=== PATIENT | male | born 1950 | race Caucasian/White ===

== ENCOUNTER 2016-07-25 09:56 | Day surgery (SDC) | payer MEDICARE, BC ==
[~2016-07-25 09:56] MED LIST: BUPIVACAINE HCL 0.75% INJ/PF (7.5 MG/1 ML) 10 ML SDV OS PRN; CHONDR SU A NA/HYALUR INTRAOC KIT (SURGICARE) ONE; EPINEPHRINE INJ/PF 1 MG/1 ML AMPULE ONE; KETOROLAC TROMETHAMINE 0.45% 4 DROP/0.4 ML DROPERETTE OS PRN; LIDOCAINE 4% INJ/PF (40 MG/ML) 5 ML AMPUL OS PRN
[2016-07-25] MEDS: CYCLOPENTOLATE 0.2%/PHENYLEPHRINE 1% OPH SOLN 2 ML OS PRN ×3 (10:13→10:40)
[2016-07-25] MEDS: TROPICAMIDE 1% OPH SOLN 3 ML OS PRN ×3 (10:14→10:41)
[2016-07-25] MEDS: BESIFLOXACIN HCL 0.6% OPH SUSP 5 ML BOTTLE OS PRN ×2 (10:15→11:37)
[2016-07-25] MEDS: TETRACAINE HCL 0.5% OPH SOLN 0.6 ML DROPERETTE OS PRN ×3 (10:17→10:51)
[2016-07-25] MEDS ORDERED: MIDAZOLAM 2 MG/2 ML INJ ONE ×2 (10:51→11:21)
[2016-07-25] MEDS ORDERED: FENTANYL CITRATE INJ/PF 100 MCG/2 ML AMPUL ONE (10:51)
--- NOTE | 2016-07-25 11:48 | [facility] OPERATIVE REPORT E ---
[facility] Operative Report NAME: RUBY KRAMER AGE: 65Y DATE OF SURGERY: 07/25/2016 ROOM: [facility] Operative Report PREOPERATIVE DIAGNOSIS: CATARACT, LEFT EYE. POSTOPERATIVE DIAGNOSIS: CATARACT, LEFT EYE. PROCEDURE PERFORMED: PHACOEMULSIFICATION WITH POSTERIOR CHAMBER INTRAOCULAR LENS, LEFT EYE. SURGEON: GLORIA KIRKLAND MD ANESTHESIA: TOPICAL WITH MAC WITH INTRAOCULAR LIDOCAINE. INDICATIONS FOR SURGERY: Difficulty with distance vision for driving. Best corrected visual acuity, 20/40. PROCEDURE: The patient was brought to the Operating Room and placed on the operative table. Following tetracaine drops, topical anesthesia was administered. This consisted of instrument wipe pledgets soaked in a solution of 4% Xylocaine mixed with 0.75% Marcaine in a 1:2 ratio. A 2 x 1 cm pledget was placed in the superior fornix. A 1 x 1 cm pledget was placed in the inferior fornix. The eye was patched shut for 5 minutes. The patch was removed. The eye was sterilely prepped and draped in the usual manner. Lid speculum was placed in the eye. The pledgets were removed. 4-0 black silk sutures were placed around the superior and the inferior rectus muscles to be used as traction. A conjunctival peritomy was made at the 10 o'clock position. Hemostasis was obtained with bipolar cautery. A posterior limbal groove was created using a crescent knife and dissected anteriorly towards the cornea. A sharp point blade was used to create a paracentesis site at the 2 o'clock position. A 2.4 mm keratome was used to enter the anterior chamber through the groove. Viscoelastic was injected into the anterior chamber. An anterior capsulotomy was performed using Utrata forceps in a capsulorrhexis fashion. Hydrodissection and hydrodelineation were performed. Phacoemulsification was performed in [id number] technique. A total of 1 minute 20 seconds phaco time was used. Following this, the I/A unit was used to remove residual cortex. Viscoelastic was injected into the capsular bag. Intraocular lens model [id number], 21.0 diopters, serial number [id number] was placed in the capsular bag. The I/A unit was used to remove residual viscoelastic. The wound was seen to be watertight under high and low pressure, and no sutures were placed. The intraocular lens was well centered. The pressure was adjusted in the eye to normal pressure. The 4-0 black silk sutures and lid speculum were removed. The eye was shielded after Besivance drops were placed. The patient tolerated the procedure well and was sent to the Recovery Room in good condition. DICTATING PHYSICIAN: GLORIA KIRKLAND M.D. DICTATING PHYSICIAN: GLORIA KIRKLAND M.D. [id number] PHY#: [id number] ID: [id number] JOB#: [id number] ACCT: [id number] cc:GLORIA KIRKLAND M.D. > MTDD
--- NOTE | 2016-07-25 11:51 | [facility] DISCHARGE SUMMARY E ---
[facility] Discharge Summary NAME: RUBY KRAMER AGE: 65Y ADMITTED: 07/25/2016 DISCHARGED: FINAL DIAGNOSIS: Cataract, left eye. HOSPITAL COURSE: The patient is a 65-year-old gentleman who underwent uneventful cataract extraction with intraocular lens implant, left eye, on 07/25/2016. DISPOSITION: The patient was discharged to home. DISCHARGE INSTRUCTIONS: He is instructed to resume preoperative medications, take Tylenol as needed for discomfort, to keep his eye shielded, to use Besivance, Durezol, and Ilevro at 3 p.m. and 8 p.m., and to follow up in my office in 1 day. DICTATING PHYSICIAN: GLORIA KIRKLAND M.D. [id number] Y#: [id number] ID: [id number] JOB#: [id number] ACCT: [id number] cc:GLORIA KIRKLAND M.D. >
[2016-07-25] MEDS ORDERED: LIDOCAINE 1% INJ-PF (10 MG/ML) 30 ML SDV ONE (12:42)
== END 2016-07-25 12:33 | disposition home or self-care (01) ==
LOC: SC 09:56
PROVIDERS: ATTEND Ophthalmology
PROC: 08RK3JZ Replacement of Left Lens with Synthetic Substitute, Percutaneous Approach (ICD-10-PCS; principal; 2016-07-25 11:30)
DX: H25.13 Age-related nuclear cataract, bilateral (principal); H35.372 Puckering of macula, left eye; H04.123 Dry eye syndrome of bilateral lacrimal glands; I10 Essential (primary) hypertension; E78.00 Pure hypercholesterolemia, unspecified; K21.9 Gastro-esophageal reflux disease without esophagitis; F17.210 Nicotine dependence, cigarettes, uncomplicated; Z79.899 Other long term (current) drug therapy
CPT/HCPCS: 66984; V2632; J2250; J3490 ×4; A9270; J0171; J3010; 142

== ENCOUNTER 2016-07-27 07:00 | Emergency (ER) | payer MEDICARE, BC ==
--- NOTE | 2016-07-27 07:31 | ER Document Report ---
Doctor's Note Notes: 07/27/16 07:31 EKG interpreted by myself at his sinus rhythm at [address] segment elevation or depression
--- NOTE | 2016-07-27 07:50 | RADIOLOGY REPORT (SQ) ---
EXAM DESCRIPTION: SHOULDER RIGHT 2 OR MORE VIEWS COMPLETED DATE/TIME: 07/27/2016 7:40 am REASON FOR STUDY: pain COMPARISON: None. NUMBER OF VIEWS: Three views. TECHNIQUE: Internal rotation, external rotation, and Y view images acquired of the right shoulder. LIMITATIONS: None. FINDINGS: MINERALIZATION: Normal. BONES: No acute fracture or dislocation. No worrisome bone lesions. JOINTS: No dislocation. 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 VISUALIZED LUNGS AND RIBS: No pneumothorax. No rib fracture. SOFT TISSUES: No radiopaque foreign body. OTHER: No other significant finding. IMPRESSION: NO RADIOGRAPHIC EVIDENCE OF ACUTE INJURY. TECHNICAL DOCUMENTATION: JOB ID: [id number] [employer]- All Rights Reserved
[2016-07-27] MEDS ORDERED: HYDROMORPHONE HCL INJ/PF 2 MG/ML AMPULE IM ONE ×2 (08:01→11:32)
[2016-07-27] MEDS ORDERED: OXYCODONE-ACETAMINOPHEN 5-325 MG TABLET PO ONE (08:02)
[2016-07-27] MEDS ORDERED: ONDANSETRON 4 MG TAB.RAPDIS PO ONE (08:08)
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
[2016-07-27 10:32] LABS: ABSOLUTE LYMPHOCYTES (AUTO) 0.9 10^3/uL (0.5-4.7); ABSOLUTE MONOCYTES (AUTO) 0.9 10^3/uL (0.1-1.4); ABSOLUTE NEUT (AUTO) 15.4 10^3/uL (1.7-8.2); BASOPHILS % (AUTO) 0.3 % (0-2); EOSINOPHILS % (AUTO) 0.1 % (0-6); HEMATOCRIT 44.2 % (37.9-51.0); HEMOGLOBIN 14.8 g/dL (13.5-17.0); HGB HCT DIFFERENCE 0.2; LYMPHOCYTES % (AUTO) 5.3 % (13-45); MEAN CORPUSCULAR HEMOGLOBIN 29.2 pg (27.0-33.4); MEAN CORPUSCULAR HGB CONC 33.4 g/dL (32.0-36.0); MEAN CORPUSCULAR VOLUME 87 fl (80-97); RED BLOOD COUNT 5.06 10^6/uL (4.35-5.55); RED CELL DISTRIBUTION WIDTH 14.1 % (11.5-14.0); SEGMENTED NEUTROPHILS % (AUTO) 89.3 % (42-78); WHITE BLOOD COUNT 17.2 10^3/uL (4.0-10.5)
[2016-07-27 11:11] LABS: ERYTHROCYTE SEDIMENTATION RATE 32 mm/hr (0-20)
[2016-07-27 13:10] VITALS: BP 155/86
--- NOTE | 2016-07-28 11:06 | EKG REPORT ---
SEVERITY:- OTHERWISE NORMAL ECG - SINUS RHYTHM BORDERLINE RIGHT AXIS DEVIATION : Confirmed by: Kimberly Belcher MD 28-Jul-2016 11:04:59
== END 2016-07-27 13:35 | disposition home or self-care (01) ==
LOC: ER 07:00
DX: M25.511 Pain in right shoulder (principal); M25.512 Pain in left shoulder
CPT/HCPCS: 93005; 99284; 96372; 36415; 85025; 85652; 86140; 84484; 73030; 93010; A9270 ×2; J1170; S0119

== ENCOUNTER 2016-07-30 11:03 | Emergency (ER) | payer MEDICARE, BC ==
--- NOTE | 2016-07-30 11:13 | ER Document Report ---
ED Medical Screen (RME) - General Chief Complaint: Pain All Over Stated Complaint: PAIN ALL OVER Time Seen by Provider: 07/30/16 11:12 Mode of Arrival: Ambulatory Information source: Patient Notes: 65-year-old male complaining of generalized myalgias since July 26. He had cataract surgery July 25 and was seen in the emergency department by Dr. Castellanos on July 27. His white count, CRP, and sed rate were elevated. He was started on doxycycline. Known embedded tick bite but does have ticks crawling on him due to living in the [facility] pretty consistently. No travel outside the [place]. Review of systems is negative for any other symptoms. TRAVEL OUTSIDE OF THE [place] IN LAST 30 DAYS: No - Related Data Allergies/Adverse Reactions: No Known Allergies Allergy (Verified 07/30/16 11:06) Past Medical History - Past Medical History Cardiac Medical History: Reports: Hx Hypertension - MEDICATED, HX OF WHITE COAT SYMDROME WELL Denies: Hx Heart Attack Pulmonary Medical History: Denies: Hx Asthma Neurological Medical History: Denies: Hx Cerebrovascular Accident, Hx Seizures Renal/ Medical History: Denies: Hx Peritoneal Dialysis GI Medical History: Denies: Hx Hepatitis, Hx Hiatal Hernia, Hx Ulcer Infectious Medical History: Denies: Hx Hepatitis Past Surgical History: Denies: Hx Open Heart Surgery, Hx Pacemaker Physical Exam - Vital signs Vitals: Temp Pulse Resp BP Pulse Ox 98.5 F 103 H 15 127/75 H 95 07/30/16 11:06 07/30/16 11:06 07/30/16 11:06 07/30/16 11:06 07/30/16 11:06 Course - Vital Signs Vital signs: Temp Pulse Resp BP Pulse Ox 98.5 F 103 H 15 127/75 H 95 07/30/16 11:06 07/30/16 11:06 07/30/16 11:06 07/30/16 11:06 07/30/16 11:06
[2016-07-30 11:45] LABS: APPEARANCE,URINE CLEAR; BILIRUBIN,URINE NEGATIVE (NEGATIVE); GLUCOSE, URINE NEGATIVE (NEGATIVE); KETONES,URINE NEGATIVE (NEGATIVE); LEUKOCYTE ESTERASE,URINE NEGATIVE (NEGATIVE); NITRITE,URINE NEGATIVE (NEGATIVE); PROTEIN,URINE NEGATIVE (NEGATIVE); URINE SPECIFIC GRAVITY 1.019
[2016-07-30 11:58] LABS: ABSOLUTE BASOPHILS # (AUTO) 0.1 10^3/uL (0.0-0.2); ABSOLUTE EOSINOPHILS # (AUTO) 0.1 10^3/uL (0.0-0.6); ABSOLUTE LYMPHOCYTES (AUTO) 1.6 10^3/uL (0.5-4.7); ABSOLUTE NEUT (AUTO) 10.5 10^3/uL (1.7-8.2); BASOPHILS % (AUTO) 0.5 % (0-2); HEMATOCRIT 46.1 % (37.9-51.0); HEMOGLOBIN 15.1 g/dL (13.5-17.0); HGB HCT DIFFERENCE -0.8; LYMPHOCYTES % (AUTO) 12.3 % (13-45); MEAN CORPUSCULAR HEMOGLOBIN 29.3 pg (27.0-33.4); MEAN CORPUSCULAR HGB CONC 32.6 g/dL (32.0-36.0); MEAN CORPUSCULAR VOLUME 90 fl (80-97); MONOCYTES % (AUTO) 7.4 % (3-13); RED BLOOD COUNT 5.14 10^6/uL (4.35-5.55); RED CELL DISTRIBUTION WIDTH 14.2 % (11.5-14.0); SEGMENTED NEUTROPHILS % (AUTO) 78.8 % (42-78); WHITE BLOOD COUNT 13.3 10^3/uL (4.0-10.5)
--- NOTE | 2016-07-30 12:20 | RADIOLOGY REPORT (SQ) ---
EXAM DESCRIPTION: CHEST PA/LAT COMPLETED DATE/TIME: 07/30/2016 12:07 pm REASON FOR STUDY: myalgias, post catarac surgery COMPARISON: None. EXAM PARAMETERS: NUMBER OF VIEWS: two views TECHNIQUE: Digital Frontal and Lateral radiographic views of the chest acquired. RADIATION DOSE: NA LIMITATIONS: none FINDINGS: LUNGS AND PLEURA: No opacities, masses or pneumothorax. No pleural effusion. MEDIASTINUM AND HILAR STRUCTURES: 10 cm masslike opacity right cardiophrenic angle. Otherwise normal . HEART AND VASCULAR STRUCTURES: Heart normal size. No evidence for failure. BONES: No acute findings. HARDWARE: None in the chest. OTHER: No other significant finding. IMPRESSION: 10 CM MASSLIKE OPACITY RIGHT CARDIOPHRENIC ANGLE. MAIN DIFFERENTIAL INCLUDES HERNIA, IN OMINENT EPICARDIAL FAT PAD, AND CARDIOGENIC CYST. RECOMMEND CT FOR FURTHER CHARACTERIZATION NO IN IOR STUDY AVAILABLE TO DOCUMENT STABILITY. TECHNICAL DOCUMENTATION: JOB ID: [id number] [employer]- All Rights Reserved
[2016-07-30 12:22] LABS: ALANINE AMINOTRANSFERASE 18 U/L (21-72); ALKALINE PHOSPHATASE 88 U/L (38-126); ANION GAP 13 (5-19); ASPARTATE AMINO TRANSFERASE 16 U/L (17-59); BILIRUBIN,DIRECT 0.4 mg/dL (0.0-0.4); BILIRUBIN,TOTAL 0.7 mg/dL (0.2-1.3); BLOOD UREA NITROGEN 20 mg/dL (7-20); C-REACTIVE PROTEIN 71.6 mg/L (<10.0); CALCIUM 9.3 mg/dL (8.4-10.2); CARBON DIOXIDE 25 mmol/L (22-30); CHLORIDE 101 mmol/L (98-107); CREATININE RESULT 0.88 mg/dL (0.52-1.25); GLUCOSE 116 mg/dL (75-110); SODIUM 138.5 mmol/L (137-145); TOTAL PROTEIN 7.3 g/dL (6.3-8.2)
[2016-07-30 12:24] LABS: POTASSIUM 4.2 mmol/L (3.6-5.0)
[2016-07-30 12:35] LABS: ERYTHROCYTE SEDIMENTATION RATE 55 mm/hr (0-20)
[2016-07-30] MEDS ORDERED: ASPIRIN 81 MG TABLET, CHEWABLE PO ONE (12:47)
[2016-07-30] MEDS ORDERED: KETOROLAC TROMETHAMINE INJ/PF 30 MG/1 ML SDV IV ONE (13:21)
[2016-07-30] MEDS ORDERED: NORMAL SALINE 1000 ML 1,000 ML IV ONE (13:21)
--- NOTE | 2016-07-30 14:48 | RADIOLOGY REPORT (SQ) ---
EXAM DESCRIPTION: CT CHEST WITH COMPLETED DATE/TIME: 07/30/2016 2:34 pm REASON FOR STUDY: eval mass COMPARISON: Chest radiograph performed earlier on the same day. TECHNIQUE: CT scan of the chest performed using helical scanning technique with dynamic intravenous contrast injection. Images reviewed with lung, soft tissue and bone windows. Reconstructed coronal and sagittal MPR images reviewed. All images stored on PACS. All CT scanners at this facility use dose modulation, iterative reconstruction, and/or weight based d osing when appropriate to reduce radiation dose to as low as reasonably achievable (ALARA). [facility]: Dose Right [facility]: CareDose [facility]: Dose Right [facility]: Teradose 4D [facility]: CamioCam CONTRAST TYPE AND DOSE: 80 Isovue 370- low osmolar. RENAL FUNCTION: GFR > 60. RADIATION DOSE: 19.75 mGy. LIMITATIONS: None. FINDINGS: LUNGS AND PLEURA: 7 mm spiculated pulmonary nodule left upper lobe seen on series 4, image 20 and series 601, image 54. 7 mm pulmonary nodule right lower lobe seen on series 4, image 53 and series 601, image 56. Lungs and pleural spaces otherwise clear. HILAR AND MEDIASTINAL STRUCTURES: 10.8 x 8.8 x 7.7 cm fluid attenuating mass right cardiophrenic angl e compatible with a benign cardiogenic cyst. Mediastinum otherwise normal. HEART AND VASCULAR STRUCTURES: No aneurysm or dissection. No central pulmonary emboli. No pericardi al effusion. HARDWARE: None in the chest. UPPER ABDOMEN: Rim calcified cyst left hepatic lobe likely sequela to prior infectious or inflammator y process. Small hiatal hernia. No acute findings. Limited exam. THYROID AND OTHER SOFT TISSUES: No masses. No adenopathy. BONES: No significant finding. OTHER: No other significant finding. IMPRESSION: 10.8 CM FLUID ATTENUATING MASS RIGHT CARDIOPHRENIC ANGLE CORRESPONDING TO FINDING ON TOM ST RADIOGRAPH AND CONSISTENT WITH A BENIGN CARDIOGENIC CYST. 7 MM PULMONARY NODULE RIGHT LOWER LOBE AND 7 MM SPICULATED PULMONARY NODULE LEFT UPPER LOBE. RECOMME ND FOLLOW-UP CT IN 3 MONTHS TO ENSURE STABILITY/ RESOLUTION. NO ADDITIONAL ACUTE OR SIGNIFICANT FINDINGS. TECHNICAL DOCUMENTATION: JOB ID: [id number] Quality ID # [id number]: Final reports with documentation of one or more dose reduction techniques (e.g., Au tomated exposure control, adjustment of the mA and/or kV according to patient size, use of iterative reconstruction technique) 2010 [employer]- All Rights Reserved
[2016-07-30 15:28] LABS: CREATINE KINASE MB 0.79 ng/mL (<4.55); TROPONIN I < 0.012 ng/mL
--- NOTE | 2016-07-30 15:53 | ER Document Report ---
ED General - General Chief Complaint: Pain All Over Stated Complaint: PAIN ALL OVER Time Seen by Provider: 07/30/16 11:12 Mode of Arrival: Ambulatory TRAVEL OUTSIDE OF THE [place] IN LAST 30 DAYS: No - HPI Patient complains to provider of: Myalgias Notes: Patient is coming in for evaluation of diffuse myalgias. Patient was recently seen for similar symptoms and currently being treated for Lyme disease. Patient was encouraged to follow-up with his primary care physician also due to his right shoulder issues encouraged follow-up with orthopedic physician. Patient did follow-up with orthopedics and did receive a shot in his shoulder patient is unclear of what was in the shop possibly hydrocortisone. Patient states continues to have diffuse myalgias sharp shooting pains throughout the body. Patient states that during his cardiac surgery he did receive extra anesthesia according to the journalism teacher. Patient states he was told that he received 4 times the normal amount due to the fact that he continued to wake up. Patient states at that time if the myalgias have continued. Patient does state he is found multiple ticks on his body but nothing embedded. Denies any recent travel denies any other symptoms. Upon my evaluation patient is resting comfortably - Related Data Allergies/Adverse Reactions: No Known Allergies Allergy (Verified 07/30/16 11:06) Past Medical History - General Information source: Patient - Social History Smoking Status: Current Every Day Smoker Family History: None Patient has suicidal ideation: No Patient has homicidal ideation: No - Past Medical History Cardiac Medical History: Reports: Hx Hypertension - MEDICATED, HX OF WHITE COAT SYMDROME WELL Denies: Hx Heart Attack Pulmonary Medical History: Denies: Hx Asthma Neurological Medical History: Denies: Hx Cerebrovascular Accident, Hx Seizures Renal/ Medical History: Denies: Hx Peritoneal Dialysis GI Medical History: Denies: Hx Hepatitis, Hx Hiatal Hernia, Hx Ulcer Infectious Medical History: Denies: Hx Hepatitis Past Surgical History: Denies: Hx Open Heart Surgery, Hx Pacemaker Review of Systems - Review of Systems Constitutional: No symptoms reported EENT: No symptoms reported Cardiovascular: No symptoms reported Respiratory: No symptoms reported Gastrointestinal: No symptoms reported Genitourinary: No symptoms reported Male Genitourinary: No symptoms reported Musculoskeletal: Muscle pain Skin: No symptoms reported Hematologic/Lymphatic: No symptoms reported Neurological/Psychological: No symptoms reported -: Yes All other systems reviewed and negative Physical Exam - Vital signs Vitals: Temp Pulse Resp BP Pulse Ox 98.5 F 103 H 15 127/75 H 95 07/30/16 11:06 07/30/16 11:06 07/30/16 11:06 07/30/16 11:06 07/30/16 11:06 Interpretation: Normal - General General appearance: Appears well, Alert - HEENT Head: Normocephalic, Atraumatic Eyes: Normal Pupils: PERRL - Respiratory Respiratory status: No respiratory distress Chest status: Nontender Breath sounds: Normal Chest palpation: Normal - Cardiovascular Rhythm: Regular Heart sounds: Normal auscultation Murmur: No - Abdominal Inspection: Normal Distension: No distension Bowel sounds: Normal Tenderness: Nontender Organomegaly: No organomegaly - Back Back: Normal, Nontender - Extremities General upper extremity: Normal inspection, Nontender, Normal color, Normal ROM , Normal temperature General lower extremity: Normal inspection, Nontender, Normal color, Normal ROM , Normal temperature, Normal weight bearing. No: Oscar's sign - Neurological Neuro grossly intact: Yes Cognition: Normal Orientation: AAOx4 Cuervo Coma Scale Eye Opening: Spontaneous Abdon Coma Scale Verbal: Oriented Cuervo Coma Scale Motor: Obeys Commands Abdon Coma Scale Total: 15 Speech: Normal Motor strength normal: LUE, RUE, LLE, RLE Sensory: Normal - Psychological Associated symptoms: Normal affect, Normal mood - Skin Skin Temperature: Warm Skin Moisture: Dry Skin Color: Normal Course - Re-evaluation Re-evalutation: 07/30/16 15:54 Patient's x-ray showed pericardial cyst this was further evaluated with a CT scan also showing bilateral pulmonary nodules. I did discuss the CT scan results with the patient. Patient did have a Lyme titer ordered. Still pending. Patient's lab work does show increased ESR and C-reactive protein for which I do not clearly have an etiology for. Patient does have possible Lyme disease affecting this could be the reason patient also does have diffuse arthritis according to his history and unclear what these laboratory values that were ordered prior to my evaluation corresponds to at this time. Cannot say patient's evaluation does not show any critical pathology. No signs of any need for admission at this time. Patient agrees with this assessment patient will be given pain control patient understands the need follow-up with his primary care as outpatient - Vital Signs Vital signs: Temp Pulse Resp BP Pulse Ox 98.5 F 103 H 15 127/75 H 95 07/30/16 11:06 07/30/16 11:06 07/30/16 11:06 07/30/16 11:06 07/30/16 11:06 - Laboratory Result Diagrams: 07/30/16 11:45 07/30/16 11:45 Laboratory results interpreted by me: 07/30/16 07/30/16 07/30/16 11:27 11:45 11:45 WBC 13.3 H RDW 14.2 H Seg Neutrophils % 78.8 H Lymphocytes % 12.3 L Absolute Neutrophils 10.5 H ESR 55 H Glucose 116 H AST 16 L ALT 18 L Creatine Kinase C-Reactive Protein 71.6 H Urine Urobilinogen 2.0 H 07/30/16 11:45 WBC RDW Seg Neutrophils % Lymphocytes % Absolute Neutrophils ESR Glucose AST ALT Creatine Kinase 45 L C-Reactive Protein Urine Urobilinogen Discharge - Discharge Clinical Impression: Diffuse myalgias Condition: Good Disposition: HOME, SELF-CARE Instructions: Myalagia (Muscle Pain) ([facility]) Additional Instructions: Your evaluation today reveals no critical etiology for your symptoms. I would highly recommend following up with your doctor next week around or Sunday for reevaluation and discussion of your Lyme titers. Also you need to let your primary care physician know that your CT scan does show to nodules on her lungs that will need to be followed. Her lab work did not show any signs of infection did not show any signs of cardiac damage. I believe that your pain may be due to possible Lyme disease or possibly from your recent exposure to anesthesia. I do not see any need for admission to the hospital at this time. I will highly recommend he continue to take Tylenol Motrin for your pain alternating every 4 hours and take the oxycodone prescribed for very severe pain. Return to the ER for any concerns Prescriptions: Ibuprofen [Motrin 600 Mg Tablet] 600 mg PO TID #30 tablet Oxycodone HCl 5 - 10 mg PO Q6 #40 tablet Referrals: GUZMAN GREY MD [Primary Care Provider] - Follow up as needed
[2016-07-30 16:45] VITALS: BP 142/81
--- NOTE | 2016-07-31 09:56 | EKG REPORT ---
SEVERITY:- NORMAL ECG - SINUS RHYTHM : Confirmed by: Sheyla Garcia 31-Jul-2016 09:54:40
[2016-08-02 07:01] LABS: LYME DISEASE IGG AND IGM AB <0.91 ISR (0.00-0.90)
== END 2016-07-30 16:20 | disposition home or self-care (01) ==
LOC: ER 11:03
DX: M79.1 Myalgia (principal); R52 Pain, unspecified; F17.200 Nicotine dependence, unspecified, uncomplicated
CPT/HCPCS: 93005; 99284; 96374; 36415; 87086; 82553; 82550; 84550; 85025; 85652; 86140; 80053; 81001; 84484; 86618 ×2; 86617 ×2; 71020; 71260; 93010; A9270; J1885; J7030

== ENCOUNTER 2016-07-31 10:09 | Emergency (ER) | payer MEDICARE, BC ==
[2016-07-31] MEDS ORDERED: NORMAL SALINE 1000 ML 1,000 ML IV PRN (10:55)
--- NOTE | 2016-07-31 10:56 | ER Document Report ---
ED Medical Screen (RME) - General Chief Complaint: Pain All Over Stated Complaint: GENERAL BODY PAIN Time Seen by Provider: 07/31/16 10:34 Mode of Arrival: Wheelchair Information source: Patient TRAVEL OUTSIDE OF THE [place] IN LAST 30 DAYS: No - HPI Patient complains to provider of: Generalized weakness, diffuse body aches Onset: Last week Onset/Duration: Worse Quality of pain: Achy Severity: Moderate Pain Level: 4 Associated Symptoms: Weakness Exacerbated by: Movement Similar symptoms previously: Yes Recently seen / treated by doctor: Yes Notes: 07/31/16 10:56 Patient is a 65-year-old male who presents to the emergency room for the third time in 1 week complaining of diffuse body aches with bilateral upper extremity pain, with generalized weakness, stating that he can barely even supported on weight this morning, he had cataract surgery on 07/25/2016 and symptoms have been worsening since then - Related Data Allergies/Adverse Reactions: No Known Allergies Allergy (Verified 07/31/16 10:15) Past Medical History - Past Medical History Cardiac Medical History: Reports: Hx Hypercholesterolemia, Hx Hypertension - MEDICATED, HX OF WHITE COAT SYMDROME WELL Denies: Hx Heart Attack Pulmonary Medical History: Denies: Hx Asthma Neurological Medical History: Denies: Hx Cerebrovascular Accident, Hx Seizures Renal/ Medical History: Denies: Hx Peritoneal Dialysis GI Medical History: Denies: Hx Hepatitis, Hx Hiatal Hernia, Hx Ulcer Infectious Medical History: Denies: Hx Hepatitis Past Surgical History: Denies: Hx Open Heart Surgery, Hx Pacemaker
[2016-07-31 11:30] LABS: ABSOLUTE BASOPHILS # (AUTO) 0.1 10^3/uL (0.0-0.2); ABSOLUTE LYMPHOCYTES (AUTO) 1.4 10^3/uL (0.5-4.7); ABSOLUTE MONOCYTES (AUTO) 1.2 10^3/uL (0.1-1.4); ABSOLUTE NEUT (AUTO) 12.5 10^3/uL (1.7-8.2); BASOPHILS % (AUTO) 0.4 % (0-2); EOSINOPHILS % (AUTO) 0.2 % (0-6); HEMATOCRIT 43.4 % (37.9-51.0); HEMOGLOBIN 14.2 g/dL (13.5-17.0); HGB HCT DIFFERENCE -0.8; LYMPHOCYTES % (AUTO) 9.5 % (13-45); MEAN CORPUSCULAR HEMOGLOBIN 29.1 pg (27.0-33.4); MEAN CORPUSCULAR HGB CONC 32.6 g/dL (32.0-36.0); MEAN CORPUSCULAR VOLUME 89 fl (80-97); MONOCYTES % (AUTO) 7.8 % (3-13); RED BLOOD COUNT 4.87 10^6/uL (4.35-5.55); RED CELL DISTRIBUTION WIDTH 13.8 % (11.5-14.0); SEGMENTED NEUTROPHILS % (AUTO) 82.1 % (42-78); WHITE BLOOD COUNT 15.2 10^3/uL (4.0-10.5)
[2016-07-31 11:51] LABS: ALANINE AMINOTRANSFERASE 18 U/L (21-72); ALBUMIN 3.9 g/dL (3.5-5.0); ALKALINE PHOSPHATASE 83 U/L (38-126); ANION GAP 14 (5-19); ASPARTATE AMINO TRANSFERASE 13 U/L (17-59); BILIRUBIN,DIRECT 0.4 mg/dL (0.0-0.4); BILIRUBIN,TOTAL 0.8 mg/dL (0.2-1.3); BLOOD UREA NITROGEN 16 mg/dL (7-20); CALCIUM 9.3 mg/dL (8.4-10.2); CARBON DIOXIDE 22 mmol/L (22-30); CHLORIDE 102 mmol/L (98-107); CREATININE RESULT 0.76 mg/dL (0.52-1.25); GLUCOSE 108 mg/dL (75-110); POTASSIUM 4.1 mmol/L (3.6-5.0); SODIUM 138.1 mmol/L (137-145); TOTAL PROTEIN 7.2 g/dL (6.3-8.2)
[2016-07-31 12:05] LABS: APPEARANCE,URINE CLEAR; BILIRUBIN,URINE NEGATIVE (NEGATIVE); GLUCOSE, URINE NEGATIVE (NEGATIVE); KETONES,URINE 20 mg/dL (NEGATIVE); LEUKOCYTE ESTERASE,URINE NEGATIVE (NEGATIVE); NITRITE,URINE NEGATIVE (NEGATIVE); PROTEIN,URINE NEGATIVE (NEGATIVE); URINE SPECIFIC GRAVITY 1.017
[2016-07-31 12:06] LABS: C-REACTIVE PROTEIN 203.6 mg/L (<10.0)
[2016-07-31 12:17] LABS: ERYTHROCYTE SEDIMENTATION RATE 86 mm/hr (0-20)
--- NOTE | 2016-07-31 12:32 | ER Document Report ---
ED General <BARB NIETO - Last Filed: 07/31/16 14:49> - General Mode of Arrival: Wheelchair Information source: Patient TRAVEL OUTSIDE OF THE [place] IN LAST 30 DAYS: No - HPI Onset: Last week Onset/Duration: Persistent Quality of pain: Achy Severity: Mild Pain Level: 1 Associated symptoms: Body/muscle aches, Weakness, Other Exacerbated by: Movement Relieved by: Denies Similar symptoms previously: Yes Recently seen / treated by doctor: Yes <PRASHANT BOTELLO - Last Filed: 07/31/16 16:16> - General Chief Complaint: Pain All Over Stated Complaint: GENERAL BODY PAIN Time Seen by Provider: 07/31/16 10:34 Notes: 65-year-old male who had cataract surgery 6 days prior and has been seen in the emergency department now 3 times presents with complaints of generalized joint pain weakness. Patient denies any fevers any upper respiratory symptoms Patient notes it is all his joints that hurt that he is had difficulty ambulating because he feels so weak (PRASHANT BOTELLO) - Related Data Allergies/Adverse Reactions: No Known Allergies Allergy (Verified 07/31/16 10:15) Past Medical History - General Information source: Patient - Social History Smoking Status: Never Smoker Cigarette use (# per day): No Chew tobacco use (# tins/day): No Smoking Education Provided: No Family History: None Patient has suicidal ideation: No Patient has homicidal ideation: No - Past Medical History Cardiac Medical History: Reports: Hx Hypercholesterolemia, Hx Hypertension - MEDICATED, HX OF WHITE COAT SYMDROME WELL Denies: Hx Heart Attack Pulmonary Medical History: Denies: Hx Asthma Neurological Medical History: Denies: Hx Cerebrovascular Accident, Hx Seizures Renal/ Medical History: Denies: Hx Peritoneal Dialysis GI Medical History: Denies: Hx Hepatitis, Hx Hiatal Hernia, Hx Ulcer Infectious Medical History: Denies: Hx Hepatitis Past Surgical History: Denies: Hx Open Heart Surgery, Hx Pacemaker <PRASHANT BOTELLO - Last Filed: 07/31/16 16:16> Review of Systems <BARB NIETO - Last Filed: 07/31/16 14:49> <PRASHANT BOTELLO - Last Filed: 07/31/16 16:16> - Review of Systems Notes: REVIEW OF SYSTEMS: CONSTITUTIONAL : Denies fever, chills, or sweats. Denies recent illness. EENT: Denies eye, ear, throat, or mouth pain or symptoms. Denies nasal or sinus congestion or discharge. Denies throat, tongue, or mouth swelling or difficulty swallowing. CARDIOVASCULAR: Denies chest pain. Denies palpitations or racing or irregular heart beat. Denies ankle edema. RESPIRATORY: Denies cough, cold, or chest congestion. Denies shortness of breath, difficulty breathing, or wheezing. GASTROINTESTINAL: Denies abdominal pain or distention. Denies nausea, vomiting , or diarrhea. Denies blood in vomitus, stools, or per rectum. Denies black, tarry stools. Denies constipation. GENITOURINARY: Denies difficulty urinating, painful urination, burning, frequency, blood in urine, or discharge. MUSCULOSKELETAL: admits to body aches SKIN: Denies rash, lesions or sores. HEMATOLOGIC : Denies easy bruising or bleeding. LYMPHATIC: Denies swollen, enlarged glands. NEUROLOGICAL: Denies confusion or altered mental status. Denies passing out or loss of consciousness. Denies dizziness or lightheadedness. Denies headache. Denies weakness or paralysis or loss of use of either side. Denies problems with gait or speech. Denies sensory loss, numbness, or tingling. Denies seizures. PSYCHIATRIC: Denies anxiety or stress. Denies depression, suicidal ideation, or homicidal ideation. ALL OTHER SYSTEMS REVIEWED AND NEGATIVE. Dictation was performed using [employer] voice recognition software PHYSICAL EXAMINATION: GENERAL: Well-appearing, well-nourished and in no acute distress. HEAD: Atraumatic, normocephalic. EYES: Pupils equal round and reactive to light, extraocular movements intact, sclera anicteric, conjunctiva are normal. ENT: Nares patent, oropharynx clear without exudates. Moist mucous membranes. NECK: Normal range of motion, supple without lymphadenopathy LUNGS: Breath sounds clear to auscultation bilaterally and equal. No wheezes rales or rhonchi. HEART: Regular rate and rhythm without murmurs ABDOMEN: Soft, nontender, nondistended abdomen. No guarding, no rebound. No masses appreciated. Musculoskeletal: limited rom secondary to pain after movement NEUROLOGICAL: Cranial nerves grossly intact. Normal speech, normal gait. Normal sensory, motor exams PSYCH: Normal mood, normal affect. SKIN: Warm, Dry, normal turgor, no rashes or lesions noted. (PRASHANT BOTELLO) Course - Laboratory Result Diagrams: 07/31/16 11:10 07/31/16 11:10 <BARB NIETO - Last Filed: 07/31/16 14:49> - Laboratory Result Diagrams: 07/31/16 11:10 07/31/16 11:10 <PRASHANT BOTELLO - Last Filed: 07/31/16 16:16> - Re-evaluation Re-evalutation: 07/31/16 14:49 Dr. Botello was involved with a pediatric conscious sedation with ambulance the neurology team and Dr. Grossman return phone call. They reviewed the patient's previous visits with Dr. tierney as I felt the patient day prior to this visit and laboratory results. At this time does not think patient has any neurological pathology more likely possible autoimmune possible myositis. Recommended the patient go to a hospitalist service for further evaluation (BARB NIETO) 07/31/16 12:31 Patient continues to have joint pain, notes it is an almost all joints right now it is not in the right ankle, lab work does note elevated C-reactive 07/31/16 12:37 Spoke with hospitalist for transfer 07/31/16 12:45 [facility] paged for transfer 07/31/16 13:[address] [facility] defer on transfer [place] consulted 07/31/16 14:[address] Karla Kwong who will accept the patient. requests blood and urine culture 07/31/16 16:16 (PRASHANT BOTELLO) - Vital Signs Vital signs: Temp Pulse Resp BP Pulse Ox 98.2 F 102 H 18 137/80 H 96 07/31/16 10:19 07/31/16 10:19 07/31/16 10:19 07/31/16 10:19 07/31/16 10:19 - Laboratory Laboratory results interpreted by me: 07/31/16 07/31/16 07/31/16 11:10 11:10 11:10 WBC 15.2 H Seg Neutrophils % 82.1 H Lymphocytes % 9.5 L Absolute Neutrophils 12.5 H ESR 86 H AST 13 L ALT 18 L Creatine Kinase 32 L C-Reactive Protein 203.6 H Urine Ketones Urine Urobilinogen 07/31/16 11:37 WBC Seg Neutrophils % Lymphocytes % Absolute Neutrophils ESR AST ALT Creatine Kinase C-Reactive Protein Urine Ketones 20 H Urine Urobilinogen 2.0 H Discharge <BARB NIETO - Last Filed: 07/31/16 14:49> <PRASHANT BOTELLO - Last Filed: 07/31/16 16:16> - Discharge Clinical Impression: Elevated C-reactive protein (CRP), Weakness Joint pain Qualifiers: Joint pain location: unspecified Qualified Code(s): M25.50 - Pain in unspecified joint Condition: Stable Disposition: [facility] Referrals: GUZMAN GREY MD [Primary Care Provider] - Follow up as needed
[2016-07-31 12:52] LABS: RHEUMATOID FACTOR NEGATIVE (NEGATIVE)
[2016-07-31 12:55] LABS: MONOTEST NEGATIVE (NEGATIVE)
[2016-07-31 20:20] VITALS: BP 182/90
--- NOTE | 2016-07-31 20:41 | ER Document Report ---
Doctor's Note Notes: 07/31/16 20:40 Please see patient pending transfer. Transfer team is here. Patient is awake alert complaining of diffuse joint pain and skin pain I had seen him initially for shoulder pain and then presented a couple times to the emergency department with diffuse joint pain. At this point he is awake alert GCS of 15 no neurological deficits and is stable for transfer to [place].
== END 2016-07-31 20:56 | disposition short-term general hospital (02) ==
LOC: ER 10:09
DX: M25.50 Pain in unspecified joint (principal); R79.82 Elevated C-reactive protein (CRP); M79.1 Myalgia; R53.1 Weakness; I10 Essential (primary) hypertension
CPT/HCPCS: 99284; 96360; 36415; 87040; 82550; 85025; 85652; 86140; 86308; 86430; 80053; 81001; 87804; J7030

== ENCOUNTER 2016-12-08 07:49 | Day surgery (SDC) | payer MEDICARE, BC ==
[~2016-12-08 07:49] MED LIST changes: +BUPIVACAINE HCL 0.75% INJ/PF (7.5 MG/1 ML) 10 ML SDV OD PRN; -BUPIVACAINE HCL 0.75% INJ/PF (7.5 MG/1 ML) 10 ML SDV OS PRN; -EPINEPHRINE INJ/PF 1 MG/1 ML AMPULE ONE; +KETOROLAC TROMETHAMINE 0.45% 4 DROP/0.4 ML DROPERETTE OD PRN; -KETOROLAC TROMETHAMINE 0.45% 4 DROP/0.4 ML DROPERETTE OS PRN; +LIDOCAINE 1% INJ-PF (10 MG/ML) 30 ML SDV ONE; +LIDOCAINE 4% INJ/PF (40 MG/ML) 5 ML AMPUL OD PRN; -LIDOCAINE 4% INJ/PF (40 MG/ML) 5 ML AMPUL OS PRN; +PHENYLEPHRINE/KETOROLAC 1%-0.3% 4 ML VIAL ONE
[2016-12-08] MEDS: TETRACAINE HCL 0.5% OPH SOLN 0.6 ML DROPERETTE OD PRN ×2 (08:15→08:38)
[2016-12-08] MEDS: TROPICAMIDE 1% OPH SOLN 3 ML OD PRN ×2 (08:15→08:27)
[2016-12-08] MEDS: CYCLOPENTOLATE 0.2%/PHENYLEPHRINE 1% OPH SOLN 2 ML OD PRN ×3 (08:15→08:38)
[2016-12-08] MEDS: BESIFLOXACIN HCL 0.6% OPH SUSP 5 ML BOTTLE OD PRN ×4 (08:15→09:28)
[2016-12-08 09:09] VITALS: BP 158/85
--- NOTE | 2016-12-08 09:36 | [facility] OPERATIVE REPORT E ---
[facility] Operative Report NAME: RUBY KRAMER AGE: 66Y DATE OF SURGERY: 12/08/2016 ROOM: PREOPERATIVE DIAGNOSIS: Cataract, right eye. POSTOPERATIVE DIAGNOSIS: Cataract, right eye. PROCEDURE PERFORMED: Phacoemulsification with posterior chamber intraocular lens, right eye. SURGEON: GLORIA KIRKLAND M.D. ANESTHESIA: Topical. PROCEDURE: The patient was brought to the Operating Room and placed on the operative table. Following tetracaine drops, topical anesthesia was administered. This consisted of instrument wipe pledgets soaked in a solution of 4% Xylocaine mixed with 0.75% Marcaine in a 1:2 ratio. A 2 x 1 cm pledget was placed in the superior fornix. A 1 x 1 cm pledget was placed in the inferior fornix. The eye was patched shut for 5 minutes. The patch was removed. The eye was sterilely prepped and draped in the usual manner. Lid speculum was placed in the eye. The pledgets were removed and 4-0 black silk sutures were placed around the superior and the inferior rectus muscles to be used as traction. A conjunctival peritomy was made at the 10 o'clock position. Hemostasis was obtained with bipolar cautery. A posterior limbal groove was created using a crescent knife and dissected anteriorly towards the cornea. A sharp point blade was used to create a paracentesis site at the 2 o'clock position. A 2.4 mm keratome was used to enter the anterior chamber through the groove. Viscoelastic was injected into the anterior chamber. An anterior capsulotomy was performed using Utrata forceps in a capsulorrhexis fashion. Hydrodissection and hydrodelineation were performed. Phacoemulsification was performed in [id number] technique. A total of 1 minute 2 seconds phaco time was used. Following this, the I/A unit was used to remove residual cortex. Viscoelastic was injected into the capsular bag. Intraocular lens model SN60WF, 21.5 diopters, serial number [id number], was placed in the capsular bag. The I/A unit was used to remove residual viscoelastic. The wound was seen to be watertight under high and low pressure, and no sutures were placed. The intraocular lens was well centered. The pressure was adjusted in the eye to normal pressure. The 4-0 black silk sutures and lid speculum were removed. The eye was shielded after Besivance drops were placed. The patient tolerated the procedure well and was sent to the Recovery Room in good condition. DICTATING PHYSICIAN: GLORIA KIRKLAND M.D. [id number] PHY#: [id number] ID: [id number] JOB#: [id number] ACCT: [id number] cc:GLORIA KIRKLAND M.D. >
--- NOTE | 2016-12-08 09:36 | [facility] DISCHARGE SUMMARY E ---
[facility] Discharge Summary NAME: RUBY KRAMER AGE: 66Y ADMITTED: 12/08/2016 DISCHARGED: 12/08/2016 FINAL DIAGNOSIS: Cataract, right eye. HOSPITAL COURSE: The patient is a 66-year-old gentleman who underwent uneventful cataract extraction with intraocular lens implant, right eye, on 12/08/2016. He will be discharged to home. He was instructed to resume preoperative medications, to take Tylenol as needed for discomfort, to keep his eye shielded, to use Besivance, Durezol and Ilevro at 3 p.m. and 8 p.m., and to follow up in my office today at 3 p.m. INDICATIONS FOR SURGERY: Difficulty driving and glare at night. Best corrected visual acuity 20/40. DICTATING PHYSICIAN: GLORIA KIRKLAND M.D. [id number] PHY#: [id number] ID: [id number] JOB#: [id number] ACCT: [id number] cc:GLORIA KIRKLAND M.D. >
== END 2016-12-08 10:03 | disposition home or self-care (01) ==
LOC: SC 07:49
PROVIDERS: ATTEND Ophthalmology
PROC: 08RJ3JZ Replacement of Right Lens with Synthetic Substitute, Percutaneous Approach (ICD-10-PCS; principal; 2016-12-08 09:00)
DX: H25.811 Combined forms of age-related cataract, right eye (principal); I10 Essential (primary) hypertension; E78.00 Pure hypercholesterolemia, unspecified; K21.9 Gastro-esophageal reflux disease without esophagitis; F17.210 Nicotine dependence, cigarettes, uncomplicated; Z79.899 Other long term (current) drug therapy
CPT/HCPCS: 66984; V2632; J3490 ×4; A9270; C9447

== ENCOUNTER 2018-11-10 19:57 | Emergency (ER) | payer MEDICARE, BC ==
--- NOTE | 2018-11-10 20:42 | ER Document Report ---
ED Medical Screen (RME) - General Chief Complaint: Altered Mental Status Stated Complaint: MEMORY LOSS Time Seen by Provider: 11/10/18 20:36 Primary Care Provider: GUZMAN GREY MD [Primary Care Provider] - Follow up as needed Mode of Arrival: Ambulatory Information source: Patient Notes: 67-year-old male presents emergency department with reports of memory loss at least 3 times last 3 months. Reports experiencing today. Denies other symptoms such as fever vomiting diarrhea. No history of strokes. Does have history of EtOH a pint every few weeks. In the past she is put away fifth on night. 3 months ago he experienced extensive surgery for cancer. I have greeted and performed a rapid initial assessment of this patient. A comprehensive ED assessment and evaluation of the patient, analysis of test results and completion of the medical decision making process will be conducted by additional ED providers. Dictation of this chart was performed using voice recognition software; therefore, there may be some unintended grammatical errors. TRAVEL OUTSIDE OF THE [place] IN LAST 30 DAYS: No - Related Data Allergies/Adverse Reactions: No Known Allergies Allergy (Verified 12/08/16 08:33) Past Medical History - Past Medical History Cardiac Medical History: Reports: Hx Hypercholesterolemia, Hx Hypertension - hypotension, HX OF WHITE COAT SYMDROME WELL Denies: Hx Heart Attack Pulmonary Medical History: Denies: Hx Asthma Neurological Medical History: Denies: Hx Cerebrovascular Accident, Hx Seizures Renal/ Medical History: Denies: Hx Peritoneal Dialysis GI Medical History: Denies: Hx Hepatitis, Hx Hiatal Hernia, Hx Ulcer Infectious Medical History: Denies: Hx Hepatitis Past Surgical History: Denies: Hx Open Heart Surgery, Hx Pacemaker Doctor's Discharge - Discharge Referrals: GUZMAN GREY MD [Primary Care Provider] - Follow up as needed
[2018-11-10 21:13] LABS: ABSOLUTE BASOPHILS # (AUTO) 0.1 10^3/uL (0.0-0.2); ABSOLUTE EOSINOPHILS # (AUTO) 0.1 10^3/uL (0.0-0.6); ABSOLUTE LYMPHOCYTES (AUTO) 1.1 10^3/uL (0.5-4.7); ABSOLUTE MONOCYTES (AUTO) 0.6 10^3/uL (0.1-1.4); ABSOLUTE NEUT (AUTO) 10.9 10^3/uL (1.7-8.2); BASOPHILS % (AUTO) 0.8 % (0-2); EOSINOPHILS % (AUTO) 0.5 % (0-6); HEMATOCRIT 37.6 % (37.9-51.0); HEMOGLOBIN 12.8 g/dL (13.5-17.0); LYMPHOCYTES % (AUTO) 8.4 % (13-45); MEAN CORPUSCULAR HGB CONC 34.1 g/dL (32.0-36.0); MEAN CORPUSCULAR VOLUME 85 fl (80-97); MONOCYTES % (AUTO) 4.5 % (3-13); PLATELET COUNT 300 10^3/uL (150-450); RED BLOOD COUNT 4.42 10^6/uL (4.35-5.55); RED CELL DISTRIBUTION WIDTH 15.7 % (11.5-14.0); SEGMENTED NEUTROPHILS % (AUTO) 85.8 % (42-78); TOTAL CELLS COUNTED % (AUTO) 100 %; WHITE BLOOD COUNT 12.7 10^3/uL (4.0-10.5)
--- NOTE | 2018-11-10 21:36 | RADIOLOGY REPORT (SQ) ---
EXAM DESCRIPTION: CT HEAD WITHOUT IV CONTRAST COMPLETED DATE/TME: 11/10/2018 20:41 CLINICAL HISTORY: 67 years, Male, memory loss confusion COMPARISON: None. TECHNIQUE: Noncontrast CT of the head was performed. Coronal and sagittal reformations were created. Images stored on PACS. All CT scanners at this facility use dose modulation, iterative reconstruction, and/or weight based dosing when appropriate to reduce radiation dose to as low as reasonably achievable (ALARA). [facility]: Dose Right [facility]: CareDose [facility]: Dose Right [facility]: Teradose 4D [facility]: [employer] Technologies LIMITATIONS: None. FINDINGS: Evaluation of the brain parenchyma reveals mild periventricular and patchy subcortical white matter low attenuation. No acute intracranial hemorrhage, mass effect, or extra-axial fluid is seen. The ventricles and sulcal spaces are normal in size and configuration. Globes and orbits show no acute abnormality. Paranasal sinuses and mastoid air cells are clear. 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 No depressed skull fractures. However, there are calcifications about the parasellar carotid arteries. IMPRESSION: No acute intracranial abnormality. Mild chronic microvascular ischemic change. TECHNICAL DOCUMENTATION: Quality ID # [id number]: Final reports with documentation of one or more dose reduction techniques (e.g., Automated exposure control, adjustment of the mA and/or kV according to patient size, use of iterative reconstruction technique) copyright 2011 [employer]- All Rights Reserved
[2018-11-10 21:37] LABS: ALBUMIN 4.2 g/dL (3.5-5.0); ALKALINE PHOSPHATASE 92 U/L (38-126); ANION GAP 11 (5-19); ASPARTATE AMINO TRANSFERASE 19 U/L (17-59); BILIRUBIN,DIRECT 0.2 mg/dL (0.0-0.4); BILIRUBIN,TOTAL 0.5 mg/dL (0.2-1.3); BLOOD UREA NITROGEN 16 mg/dL (7-20); CALCIUM 9.6 mg/dL (8.4-10.2); CARBON DIOXIDE 25 mmol/L (22-30); CHLORIDE 100 mmol/L (98-107); GLUCOSE 113 mg/dL (75-110); POTASSIUM 4.1 mmol/L (3.6-5.0)
[2018-11-10 21:38] LABS: APPEARANCE,URINE CLEAR; BILIRUBIN,URINE NEGATIVE (NEGATIVE); COLOR,URINE YELLOW; GLUCOSE, URINE NEGATIVE (NEGATIVE); KETONES,URINE NEGATIVE (NEGATIVE); LEUKOCYTE ESTERASE,URINE NEGATIVE (NEGATIVE); NITRITE,URINE NEGATIVE (NEGATIVE); PROTEIN,URINE NEGATIVE (NEGATIVE); URINE SPECIFIC GRAVITY 1.008; UROBILINOGEN,URINE NEGATIVE mg/dL (<2.0)
[2018-11-10 22:02] LABS: ALCOHOL < 10 mg/dL (NONE DETECTED)
[2018-11-10 22:24] LABS: URINE AMPHETAMINES SCREEN NEGATIVE; URINE BARBITURATES SCREEN NEGATIVE; URINE BENZODIAZEPINES SCREEN NEGATIVE; URINE COCAINE SCREEN NEGATIVE; URINE MARIJUANA (THC) SCREEN NEGATIVE; URINE METHADONE SCREEN NEGATIVE; URINE PHENCYCLIDINE SCREEN NEGATIVE
--- NOTE | 2018-11-10 23:34 | ER Document Report ---
ED General - General Chief Complaint: Altered Mental Status Stated Complaint: MEMORY LOSS Time Seen by Provider: 11/10/18 20:36 Primary Care Provider: GUZMAN GREY MD [Primary Care Provider] - Follow up as needed Mode of Arrival: Ambulatory Notes: 67-year-old male presents emergency department complaining of memory loss for the past week. Patient gives example that he bought a tractor this week and does not remember buying it however he remembers using the tractor this week. Patient states that he has had similar episodes 3 times in the past, the last one was 2 weeks ago. States that they have not been able to tell him what was causing it. States he talked to his primary care physician and was told that if it happens again he should come back and they will do more testing. 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 Patient does note that he has a history of insomnia that he has struggled with all of his life. States he does not feel like is getting any worse however his at bedside states she feels like is getting much worse. Patient has never had a full work-up for insomnia, has never been checked for sleep apnea. Currently takes trazodone but is not taking any Lunesta or Ambien. TRAVEL OUTSIDE OF THE [place] IN LAST 30 DAYS: No - Related Data Allergies/Adverse Reactions: No Known Allergies Allergy (Verified 12/08/16 08:33) Past Medical History - General Information source: Patient - Social History Smoking Status: Current Every Day Smoker Chew tobacco use (# tins/day): No Frequency of alcohol use: Heavy - Patient states "I do not have a drinking problem" but also states that if he has tooth pain he may drink a pint of hard liquor in an evening. Drug Abuse: None Lives with: Spouse/Significant other Family History: None - No family history of dementia. Patient has suicidal ideation: No Patient has homicidal ideation: No - Past Medical History Cardiac Medical History: Reports: Hx Hypercholesterolemia, Hx Hypertension - hypotension, HX OF WHITE COAT SYMDROME WELL Denies: Hx Heart Attack Pulmonary Medical History: Denies: Hx Asthma Neurological Medical History: Denies: Hx Cerebrovascular Accident, Hx Seizures Renal/ Medical History: Denies: Hx Peritoneal Dialysis GI Medical History: Denies: Hx Hepatitis, Hx Hiatal Hernia, Hx Ulcer Infectious Medical History: Denies: Hx Hepatitis Past Surgical History: Denies: Hx Open Heart Surgery, Hx Pacemaker Review of Systems - Review of Systems Neurological/Psychological: See HPI -: Yes All other systems reviewed and negative Physical Exam - Vital signs Vitals: Temp Pulse Resp BP Pulse Ox 97.9 F 74 18 148/83 H 98 11/10/18 20:19 11/10/18 20:19 11/10/18 20:19 11/10/18 20:19 11/10/18 20:19 Interpretation: Hypertensive - Notes Notes: GENERAL: Alert, interacts well. No acute distress. HEAD: Normocephalic, atraumatic EYES: Pupils equal, round and reactive to light, extraocular movements intact. ENT: Oral mucosa moist, tongue midline. NECK: Full range of motion, supple, trachea midline. LUNGS: Clear to auscultation bilaterally, no wheezes, rales or rhonchi, no respiratory distress. HEART: Regular rate and rhythm, no murmurs, gallops, rubs. ABDOMEN: Soft, nontender, nondistended, bowel sounds present in all 4 quadrants. EXTREMITIES: Moves all 4 extremities spontaneously, no edema, radial and dorsalis pedis pulses 2/4 bilaterally. No cyanosis. NEUROLOGICAL: Alert and oriented x3, normal speech, cranial nerves II through XII grossly intact, [id number] testing intact, biceps and patellar DTRs 2+ bilaterally. PSYCH: Normal mood, normal affect. SKIN: Warm, Dry, normal turgor, no rashes or lesions noted. Course - Re-evaluation Re-evalutation: 11/10/18 23:36 CBC shows mild leukocytosis of 12.7, mild anemia at 12.8, patient is on prednisone which likely accounts for leukocytosis, CMP grossly unremarkable, lipase normal at 58, urinalysis unremarkable, urine drug screen negative, alcohol level undetectable, CT scan of the head shows some periventricular white matter disease consistent with mild chronic microvascular ischemic change. No acute process. Discussed with patient and family member that it is very important that he have a full work-up for memory loss with his primary care physician that will likely include referral to a neurologist and that is also very important that given his history of insomnia that has never been fully worked up that he be seen by a sleep doctor to include likely sleep study to look for sleep apnea. I discussed them with them that sleep apnea could worsen his insomnia, causes insomnia or cause or worsen his memory loss. Patient has absolutely no physical symptoms and no focal neurologic deficits that would indicate that this is a stroke, there are no metabolic abnormalities that would cause this memory loss. Discharged to home. - Vital Signs Vital signs: Temp Pulse Resp BP Pulse Ox 97.9 F 74 18 148/83 H 98 11/10/18 20:19 11/10/18 20:19 11/10/18 20:19 11/10/18 20:19 11/10/18 20:19 - Laboratory Result Diagrams: 11/10/18 21:00 11/10/18 21:00 Laboratory results interpreted by me: 11/10/18 11/10/18 21:00 21:00 WBC 12.7 H Hgb 12.8 L Hct 37.6 L RDW 15.7 H Lymph % (Auto) 8.4 L Absolute Neuts (auto) 10.9 H Seg Neutrophils % 85.8 H Sodium 135.5 L Glucose 113 H Discharge - Discharge Clinical Impression: Memory loss Insomnia Qualifiers: Insomnia type: unspecified Qualified Code(s): G47.00 - Insomnia, unspecified Condition: Stable Disposition: HOME, SELF-CARE Additional Instructions: I do not know what is causing your memory loss. It is very important that you follow-up with your primary care physician as an outpatient. You will need an evaluation by a neurologist for possible dementia or other causes of memory loss. Some causes can be reversible so please do not delay this evaluation. It is also important that you follow-up with a sleep physician as an outpatient for a full work-up for insomnia. This could include a sleep study to look for sleep apnea. I have included Dr. Velazco's name. He is a [facility] who is also a sleep doctor who can perform the studies if indicated. Referrals: GUZMAN GREY MD [Primary Care Provider] - Follow up as needed CLIF VELAZCO MD [ACTIVE STAFF] - Follow up as needed
[2018-11-10 23:50] VITALS: BP 151/82
== END 2018-11-10 23:49 | disposition home or self-care (01) ==
LOC: ER 19:57
DX: R41.3 Other amnesia (principal); G47.00 Insomnia, unspecified; Z79.899 Other long term (current) drug therapy; R90.82 White matter disease, unspecified; D72.829 Elevated white blood cell count, unspecified; D64.9 Anemia, unspecified; I10 Essential (primary) hypertension; F17.200 Nicotine dependence, unspecified, uncomplicated; Z79.52 Long term (current) use of systemic steroids
CPT/HCPCS: 36415; 70450; 80053; 80307; 81001; 83690; 85025; 99285

== ENCOUNTER → 2018-11-20 | Outpatient (CLI) | payer MEDICARE, BC ==
--- NOTE | 2018-11-20 19:45 | RADIOLOGY REPORT (SQ) ---
EXAM DESCRIPTION: MRI HEAD WITHOUT COMPLETED DATE/TIME: 11/20/2018 7:32 pm REASON FOR STUDY: R41.3 OTHER AMNESIA R41.3 OTHER AMNESIA COMPARISON: CT 11/10/2018 TECHNIQUE: Multiplanar imaging includes non-contrasted T1, T2, FLAIR, and diffusion with ADC map seq uences. Images stored on PACS. LIMITATIONS: None. FINDINGS: ANATOMY: No anomalies. Normal vascular flow voids. Pituitary fossa normal. CSF SPACES: Normal in size and contour. No hemorrhage. CEREBRUM: Sulci and gyri normal in size and contour. Normal white matter signal on FLAIR imaging. No evidence of hemorrhage, mass, or extraaxial fluid collection. POSTERIOR FOSSA: No signal alteration. No hemorrhage. No edema, masses or mass effect. Internal phillip tory canals, cerebello-pontine angles, mastoids normal. DIFFUSION IMAGING: Negative for acute or sub-acute infarction. ORBITS: No masses. Globes normal. PARANASAL SINUSES: No fluid levels. Mucosa normal. OTHER: No other significant finding. IMPRESSION: NORMAL MRI OF THE BRAIN WITHOUT INTRAVENOUS GADOLINIUM CONTRAST. EVIDENCE OF ACUTE STROKE: NO. TECHNICAL DOCUMENTATION: JOB ID: [id number] [employer]- All Rights Reserved Reading location - IP/workstation name: [email or web address]
== END ==
LOC: RAD 18:02
PROVIDERS: ATTEND Internal Medicine
DX: R41.3 Other amnesia (principal)
CPT/HCPCS: 70551

== ENCOUNTER → 2019-04-28 | Outpatient (CLI) | payer MEDICARE, BC ==
--- NOTE | 2019-04-28 09:35 | RADIOLOGY REPORT (SQ) ---
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 Images reviewed with lung, soft tissue and bone windows. Reconstructed coronal and sagittal MPR and MIP images reviewed. All images stored on PACS. All CT scanners at this facility use dose modulation, iterative reconstruction, and/or weight based d osing when appropriate to reduce radiation dose to as low as reasonably achievable (ALARA). [facility]: Dose Right [facility]: CareDose [facility]: Dose Right [facility]: Teradose 4D [facility]: Smart ATG Access CONTRAST TYPE AND DOSE: See abdomen RENAL FUNCTION: See abdomen RADIATION DOSE: CT Rad equipment meets quality standard of care and radiation dose reduction techniq ues were employed. CTDIvol: 13.7 - 16.3 mGy. DLP: 2059 mGy-cm. . LIMITATIONS: None. FINDINGS: LUNGS AND PLEURA: Stable low-attenuation cystic lesion measuring up to 8.4 cm, within the right cardiophrenic recess compatible with cyst. There has been interval increase in size of the rig ht lower lobe pulmonary nodule measuring 13 mm (series 6, image 103). The nodule previously measured 7 mm on exam dated 07/30/2016 and 10 mm on exam dated 06/18/2018. Additionally, there has been minima l interval increase in size of the left upper lobe pulmonary nodule measuring 10 mm (series 6, image 39). This previously measured 7 mm on exam dated 07/30/2016 and approximately 8 mm on PET 06/18/2018 n o new nodules or masses. No pleural effusion or pneumothorax. No airspace disease. HILAR AND MEDIASTINAL STRUCTURES: No identified masses or abnormal nodes. HEART AND VASCULAR STRUCTURES: No aneurysm. No dissection. Scattered coronary atherosclerosis. Sca ttered aortic atherosclerosis. Aortic valvular calcifications. HARDWARE: None in the chest. UPPER ABDOMEN: See separate report of the CT of the abdomen. THYROID AND OTHER SOFT TISSUES: No masses. No adenopathy. BONES: No significant finding. OTHER: No other significant finding. IMPRESSION: 1. Interval increase in size of the previously described right lower lobe pulmonary nod ule now measuring 13 mm, previously measuring approximately 10 mm on prior PET-CT. Findings suspicio us for malignancy. Additional minimal interval change in the left upper lobe pulmonary nodule now me asuring up to 10 mm, previously 9 mm. No new nodules or masses. 2. Stable right cardiophrenic cyst. TECHNICAL DOCUMENTATION: JOB ID: [id number] Quality ID # [id number]: Final reports with documentation of one or more dose reduction techniques (e.g., Au tomated exposure control, adjustment of the mA and/or kV according to patient size, use of iterative reconstruction technique) 2010 [employer]- All Rights Reserved Reading location - IP/workstation name: [email or web address]
--- NOTE | 2019-04-28 09:58 | RADIOLOGY REPORT (SQ) ---
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 No oral contrast. Images reviewed with lung, soft tissue, and bone windows. Reconstructed coronal and sagittal MPR images reviewed. Delayed images for evaluation of the urinary system also acquired. All images stored on PACS. All CT scanners at this facility use dose modulation, iterative reconstruction, and/or weight based d osing when appropriate to reduce radiation dose to as low as reasonably achievable (ALARA). [facility]: Dose Right [facility]: CareDose [facility]: Dose Right [facility]: Teradose 4D [facility]: Protek-dor CONTRAST TYPE AND DOSE: contrast/concentration: Isovue 350.00 mg/ml; Total Contrast Delivered: 100.0 ml; Total Saline Delivered: 72.0 ml RENAL FUNCTION: Creatinine 1.1 RADIATION DOSE: . LIMITATIONS: None. FINDINGS: LOWER CHEST: See separate report of the CT of the chest. LIVER: No discrete mass. Stable peripherally calcified hypodense lesion within the left lobe measuri ng up to 24 mm. Scattered subcentimeter hypodense lesions, likely cyst but difficult to characterize , stable. No intrahepatic ductal dilation. SPLEEN: Normal size. No focal lesions. PANCREAS: No masses. No significant calcifications. No adjacent inflammation or peripancreatic fluid collections. Pancreatic duct not dilated. GALLBLADDER: Nonvisualized. ADRENAL GLANDS: No significant masses or asymmetry. RIGHT KIDNEY AND URETER: No solid masses. No significant calcifications. No hydronephrosis or hyd roureter. LEFT KIDNEY AND URETER: No solid masses. No significant calcifications. No hydronephrosis or hydr oureter. AORTA AND VESSELS: No aneurysm. No dissection. Renal arteries, SMA, celiac without stenosis. RETROPERITONEUM: No retroperitoneal adenopathy, hemorrhage or masses. BOWEL AND PERITONEAL CAVITY: Postsurgical changes from prior subtotal colectomy. No focal bowel wall thickening. No evidence of intestinal obstruction. APPENDIX: Absent. PELVIS: Decompressed urinary bladder. Scattered prostatic calcifications and prostatomegaly measurin g 5.1 cm transversely. ABDOMINAL WALL: Evidence of prior midline laparotomy. No hernia. No focal lesion. BONES: No acute bony abnormality. No discrete lytic or blastic osseous lesions. OTHER: No other significant finding. IMPRESSION: 1. Postsurgical changes from subtotal colectomy without evidence of new metastatic dise ase within the abdomen or pelvis. 2. Stable subcentimeter hypodense hepatic lesions, likely cyst but incompletely characterized. Stab le peripherally calcified hypodense left hepatic lobe lesion. TECHNICAL DOCUMENTATION: JOB ID: [id number] Quality ID # [id number]: Final reports with documentation of one or more dose reduction techniques (e.g., Au tomated exposure control, adjustment of the mA and/or kV according to patient size, use of iterative reconstruction technique) 2010 [employer]- All Rights Reserved Reading location - IP/workstation name: [email or web address]
== END ==
LOC: RAD 08:14
PROVIDERS: ATTEND Physician Assistant Medical
DX: C18.7 Malignant neoplasm of sigmoid colon (principal); R91.1 Solitary pulmonary nodule; J98.4 Other disorders of lung
CPT/HCPCS: 71260; 74177; 82565

== ENCOUNTER → 2019-05-13 | Outpatient (CLI) | payer MEDICARE, BC ==
--- NOTE | 2019-05-13 13:25 | RADIOLOGY REPORT (SQ) ---
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 Correlation: CT chest abdomen pelvis 04/28/2019. RADIONUCLIDE AND DOSE: 9.93 mCi F18 FDG The route of agent administration: Intravenous FASTING BLOOD SUGAR: 118 mg/dl CONTRAST TYPE AND DOSE: No CT contrast given. TECHNIQUE: Blood glucose level was verified. Above dose of FDG was injected intravenously. 2-D seg mented attenuation correction images were obtained from the base of the skull to the midthighs. Nonc ontrast CT images were obtained for attenuation correction and fusion with emission images. CT image s were performed without oral or intravenous contrast and are not sensitive for parenchymal lesions. A series of overlapping emission PET images were obtained. Images reviewed and manipulated at [facility] work station by the radiologist. Images stored on PACS. LIMITATIONS: None. FINDINGS: HEAD AND NECK: No areas of abnormal metabolic activity in the soft tissues of the head and neck. CHEST: No areas of abnormal metabolic activity in the chest. ABDOMEN AND PELVIS: No areas of abnormal metabolic activity in the abdomen or pelvis. Expected physi ologic activity is present in the genitourinary system and bowel. PROXIMAL LOWER EXTREMITIES: No areas of abnormal metabolic activity in the soft tissues of the lower extremities. BONES: No abnormal metabolic activity in the visualized skeleton. ADDITIONAL CT FINDINGS: 13 mm mostly solid nodule right lower lobe is not hypermetabolic. 10 mm left upper lobe part solid nodule is not hypermetabolic. Large right pericardial cyst. Right hemicolectomy. OTHER: No other significant findings. IMPRESSION: Non hypermetabolic pulmonary nodules. TECHNICAL DOCUMENTATION: JOB ID: [id number] [employer]- All Rights Reserved Reading location - IP/workstation name: [email or web address]
== END ==
LOC: RAD 08:39
PROVIDERS: ATTEND Internal Medicine
DX: C18.7 Malignant neoplasm of sigmoid colon (principal)
CPT/HCPCS: 78815; A9552

== ENCOUNTER → 2019-08-11 | Outpatient (CLI) | payer MEDICARE, BC ==
--- NOTE | 2019-08-11 11:00 | RADIOLOGY REPORT (SQ) ---
EXAM DESCRIPTION: CT ABD/PELVIS WITH IV ONLY IMAGES COMPLETED DATE/TIME: 08/11/2019 8:39 am REASON FOR STUDY: COLON CA (C18.7) C18.7 MALIGNANT NEOPLASM OF SIGMOID COLON COMPARISON: PET from 05/13/[address] of the abdomen and pelvis from 04/28/2019. TECHNIQUE: CT scan of the abdomen and pelvis performed using helical scanning technique with dynamic intravenous contrast injection. No oral contrast. Images reviewed with lung, soft tissue, and bone windows. Reconstructed coronal and sagittal MPR images reviewed. Delayed images for evaluation of the urinary system also acquired. All images stored on PACS. All CT scanners at this facility use dose modulation, iterative reconstruction, and/or weight based d osing when appropriate to reduce radiation dose to as low as reasonably achievable (ALARA). [facility]: Dose Right [facility]: CareDose [facility]: Dose Right [facility]: Teradose 4D [facility]: [employer] CONTRAST TYPE AND DOSE: 100 mL Omnipaque 350- low osmolar. RENAL FUNCTION: Creatinine 1.1 milligrams/deciliter. LIMITATIONS: None. FINDINGS: LOWER CHEST: Refer to the separate report of the CT of the chest. LIVER: The morphology of the liver is noncirrhotic. The partially calcified hypodense lesion in segm ent 2 of the liver (image 16 of series 3) is stable. There are several subcentimeter hypodense lesio ns scattered throughout segments 4 and 5/6 that are also stable in size and number and are considered too small to characterize. The portal veins are patent. SPLEEN: No splenomegaly or splenic mass. PANCREAS: No acute gross abnormality of the pancreas. GALLBLADDER: The gallbladder is either contracted or surgically absent. ADRENAL GLANDS: No mass or asymmetry. RIGHT KIDNEY AND URETER: No solid mass, hydronephrosis, nephrolithiasis, hydroureter or ureterolithia sis LEFT KIDNEY AND URETER: There are several subcentimeter cortical-based hypodense lesions that are st able in size and number compared to the prior CT and are considered too small to characterize. There is no solid mass, hydronephrosis, nephrolithiasis, hydroureter or ureterolithiasis. AORTA AND VESSELS: No aneurysm or dissection of the abdominal aorta. The abdominopelvic vasculature is patent. RETROPERITONEUM: No retroperitoneal adenopathy, hemorrhage or mass. BOWEL AND PERITONEAL CAVITY: Status post subtotal colectomy. The circumscribed fat attenuation mass with a peripheral hyperdense rim in the right omentum (image 50 of series 3) is unchanged and could r epresent an omental infarct. There is no bowel obstruction, bowel wall thickening or pericolonic/per ienteric inflammation. There is no mesenteric adenopathy or free intraperitoneal fluid. APPENDIX: Surgically absent. PELVIS: The prostate gland is enlarged and it measures 4.6 cm in transverse diameter. The urinary bl adder is contracted. ABDOMINAL WALL: Postoperative findings consistent with prior ventral laparotomy. There is no mass or hernia. BONES: No acute fracture or osseous lesions. OTHER: No other finding. IMPRESSION: 1. No acute intra-abdominal abnormality. 2. Postoperative findings consistent with prior ventral laparotomy and subtotal colectomy. The circu mscribed fat attenuation lesion with a peripheral hyperdense rim in the right omentum (image 50 of se vitaliy 3) is unchanged and could represent an omental infarct. There is no evidence of recurrent disea se. 3. Prostatomegaly. 4. Stable hepatic lesions as detailed above. TECHNICAL DOCUMENTATION: JOB ID: [id number] Quality ID # [id number]: Final reports with documentation of one or more dose reduction techniques (e.g., Au tomated exposure control, adjustment of the mA and/or kV according to patient size, use of iterative reconstruction technique) 2010 [employer]- All Rights Reserved Reading location - IP/workstation name: [email or web address]
--- NOTE | 2019-08-11 11:12 | RADIOLOGY REPORT (SQ) ---
EXAM DESCRIPTION: CT CHEST WITH IMAGES COMPLETED DATE/TIME: 08/11/2019 8:39 am REASON FOR STUDY: COLON CA (C18.7) C18.7 MALIGNANT NEOPLASM OF SIGMOID COLON COMPARISON: PET from 05/13/[address] of the chest from 04/28/2019. TECHNIQUE: CT scan of the chest performed using helical scanning technique with dynamic intravenous contrast injection. Images reviewed with lung, soft tissue and bone windows. Reconstructed coronal and sagittal MPR and MIP images reviewed. All images stored on PACS. All CT scanners at this facility use dose modulation, iterative reconstruction, and/or weight based d osing when appropriate to reduce radiation dose to as low as reasonably achievable (ALARA). [facility]: Dose Right [facility]: CareDose [facility]: Dose Right [facility]: Teradose 4D [facility]: [employer] CONTRAST TYPE AND DOSE: 100 mL Omnipaque 350- low osmolar. RENAL FUNCTION: Creatinine 1.1 milligrams/deciliter. RADIATION DOSE: CT Rad equipment meets quality standard of care and radiation dose reduction techniq ues were employed. CTDIvol: 9.5 - 12.3 mGy. DLP: 1695 mGy-cm. LIMITATIONS: None. FINDINGS: LUNGS AND PLEURA: Unchanged upper lobe predominant centrilobular emphysema. The low-atten uation cystic lesion in the right cardiophrenic recess is unchanged in size and it measures up to 4.9 cm in transverse diameter. There is no acute consolidation, ground-glass opacification, pleural eff usion or pneumothorax. LUNG NODULES: The 10 mm spiculated nodule in the left upper lobe (image 36 of series 6) and the 13 x 8 mm spiculated nodule in the right lower lobe (image 104 of series 6) are unchanged in size compare d to the CT from 04/28/2019. The nodular opacities in the right middle lobe (image 104 of series 6) ar e also unchanged. There is no new or enlarging pulmonary nodule. HILAR AND MEDIASTINAL STRUCTURES: No adenopathy or mass. HEART AND VASCULAR STRUCTURES: Atherosclerotic calcification of the thoracic aorta, aortic valve leaf lets, and coronary arteries. There is no cardiomegaly or pericardial effusion. There is no HARDWARE: None in the chest. UPPER ABDOMEN: Refer to the separate report of the CT of the abdomen. THYROID AND OTHER SOFT TISSUES: No mass or adenopathy. BONES: No fracture or osseous lesion OTHER: No other finding. IMPRESSION: 1. Stable spiculated nodules in the left upper lobe (image 36 of series 6) and right low er lobe (image 104 series 6). There is no new or enlarging pulmonary nodule. 2. Stable low-attenuation cystic lesion in the right cardiophrenic recess. TECHNICAL DOCUMENTATION: JOB ID: [id number] Quality ID # [id number]: Final reports with documentation of one or more dose reduction techniques (e.g., Au tomated exposure control, adjustment of the mA and/or kV according to patient size, use of iterative reconstruction technique) 2010 [employer]- All Rights Reserved Reading location - IP/workstation name: [email or web address]
== END ==
LOC: RAD 07:51
PROVIDERS: ATTEND Internal Medicine
DX: C18.7 Malignant neoplasm of sigmoid colon (principal)
CPT/HCPCS: 71260; 74177; 82565

== ENCOUNTER → 2019-11-17 | Outpatient (CLI) | payer MEDICARE, BC ==
--- NOTE | 2019-11-17 16:49 | RADIOLOGY REPORT (SQ) ---
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 COMPARISON: Chest, 07/30/2016 TECHNIQUE: CT scan of the chest performed using helical scanning technique with dynamic intravenous contrast injection. Images reviewed with lung, soft tissue and bone windows. Reconstructed coronal and sagittal MPR and MIP images reviewed. All images stored on PACS. All CT scanners at this facility use dose modulation, iterative reconstruction, and/or weight based d osing when appropriate to reduce radiation dose to as low as reasonably achievable (ALARA). [facility]: Dose Right [facility]: CareDose [facility]: Dose Right [facility]: Teradose 4D [facility]: [employer] CONTRAST TYPE AND DOSE: contrast/concentration: Isovue 350.00 mmol/ml; Total Contrast Delivered: 78. 0 ml; Total Saline Delivered: 45.0 ml RENAL FUNCTION: GFR > 60. RADIATION DOSE: CT Rad equipment meets quality standard of care and radiation dose reduction techniq ues were employed. CTDIvol: 11.0 mGy. DLP: 461 mGy-cm. . LIMITATIONS: None. FINDINGS: LUNGS AND PLEURA: The trachea has normal caliber and appearance. Background mild pulmonar y emphysema. No bronchial wall thickening or bronchiectasis. No focal consolidation. At 1.3 x 1 cm solid nodule at the right lung base is stable from previous, previously not hypermetabolic. There i s a new 5 mm solid nodule in the right middle lobe (image 97). New 7 mm solid nodule in the lingula (image 78). In retrospect this was likely present on previous PET scan performed 05/13/2019 at which time it measured about 4 mm. Stable 9 mm left upper lobe solid nodule, previously demonstrated non h ypermetabolic. HILAR AND MEDIASTINAL STRUCTURES: No mediastinal adenopathy. The right pericardial cyst has decrease d in size since previous. HEART AND VASCULAR STRUCTURES: No aneurysm or dissection. No central pulmonary emboli. No pericardi al effusion. HARDWARE: None in the chest. UPPER ABDOMEN: Mild hepatic steatosis. Peripherally calcified cyst in the left hepatic lobe is uncha nged. Small right hepatic lobe cyst. THYROID AND OTHER SOFT TISSUES: No masses. No adenopathy. BONES: No significant finding. OTHER: No other significant finding. IMPRESSION: 1. New 5 mm solid nodule right middle lobe and new 7 mm nodule in the lingula, new from prior PET sca n. These are indeterminate and may represent infectious/ inflammatory process. Metastasis is not ex cluded. A follow-up CT of the chest in 3 months is recommended for re-evaluation. 2. Otherwise stable solid nodules in the right lower lobe and left upper lobe. 3. Decreased size of the pericardial cyst. TECHNICAL DOCUMENTATION: JOB ID: [id number] Quality ID # 436: Final reports with documentation of one or more dose reduction techniques (e.g., Au tomated exposure control, adjustment of the mA and/or kV according to patient size, use of iterative reconstruction technique) 2010 [employer]- All Rights Reserved Reading location - IP/workstation name: [email or web address]
== END ==
LOC: RAD 14:46
PROVIDERS: ATTEND Physician Assistant Medical
DX: C18.7 Malignant neoplasm of sigmoid colon (principal)
CPT/HCPCS: 71260; 82565

== ENCOUNTER → 2020-02-24 | Outpatient (CLI) | payer MEDICARE, BC ==
--- NOTE | 2020-02-25 14:25 | RADIOLOGY REPORT (SQ) ---
EXAM DESCRIPTION: CT CHEST WITH; CT ABD/PELVIS WITH IV ORAL IMAGES COMPLETED DATE/TIME: 02/24/2020 2:48 pm; 02/24/2020 2:54 pm REASON FOR STUDY: C18.7 Malignant neoplasm of sigmoid colon C18.7 MALIGNANT NEOPLASM OF SIGMOID COL ON COMPARISON: 11/17/2019, 08/11/2019, and 08/29/2016 CONTRAST TYPE AND DOSE: contrast/concentration: Isovue 350.00 mmol/ml; Total Contrast Delivered: 100 .0 ml; Total Saline Delivered: 45.0 ml RENAL FUNCTION: Creatinine 1.3 TECHNIQUE: CT scan of the chest performed using helical scanning technique with dynamic intravenous contrast injection. Images reviewed with lung, soft tissue and bone windows. Reconstructed coronal a nd sagittal MPR images reviewed. All images stored on PACS. CT scan of the abdomen and pelvis performed with intravenous and with oral contrastusing helical scan lani technique with dynamic intravenous contrast injection. Images reviewed with lung, soft tissue a nd bone windows. Reconstructed coronal and sagittal MPR images reviewed. Delayed images for evaluat ion of the urinary system also acquired and evaluated. All images stored on PACS. All CT scanners at this facility use dose modulation, iterative reconstruction, and/or weight based d osing when appropriate to reduce radiation dose to as low as reasonably achievable (ALARA). [facility]: Dose Right [facility]: CareDose [facility]: Dose Right [facility]: Teradose 4D [facility]: [employer] RADIATION DOSE: CT Rad equipment meets quality standard of care and radiation dose reduction techniq ues were employed. CTDIvol: 12.0 - 14.1 mGy. DLP: 2045 mGy-cm. . LIMITATIONS: None. FINDINGS: CHEST: LUNGS AND PLEURA: A previously demonstrated lingular nodule appears somewhat increased in size on tod ay's examination, measuring on the order of 1.0 x 0.9 x 0.6 cm (previously reported 7 mm) ; this is b est visualized on axial image 81 and coronal reformat 36. Additional nodules seen within the left up per lobe (axial image 39), right middle lobe (axial image 102), and right lower lobe (axial image 103 ) each appears stable in size in the study interval. A loculated fluid collection seen within the ri [facility] major fissure is unchanged. No new or suspicious nodule/ mass. No focal consolidation. No pneu mothorax. HILAR AND MEDIASTINAL STRUCTURES: No identified masses or abnormal nodes. HEART AND VASCULAR STRUCTURES: No aneurysm or dissection. No central pulmonary emboli. No pericardi al effusion. HARDWARE: None. THYROID AND OTHER SOFT TISSUES: No masses. No adenopathy. BONES: No significant finding. OTHER: No other significant finding. ABDOMEN AND PELVIS: LIVER: Stable CT appearance of the liver demonstrating a 2.4 cm hypodense focus with peripheral calci fication within the left hepatic lobe. Few subcentimeter hypoattenuating foci are too small to defin itively characterize, but likely represent tiny hepatic cysts and are stable in appearance. SPLEEN: Normal size. No focal lesions. PANCREAS: No masses. No significant calcifications. No adjacent inflammation or peripancreatic fluid collections. Pancreatic duct not dilated. GALLBLADDER: Surgically absent. ADRENAL GLANDS: No significant masses or asymmetry. RIGHT KIDNEY AND URETER: No solid masses. No significant calcification. No hydronephrosis or hydroure ter. LEFT KIDNEY AND URETER: No solid masses. Stable tiny presumed renal cysts. No significant calcifica tion. No hydronephrosis or hydroureter. AORTA AND VESSELS: No aneurysm. No dissection. Renal arteries, SMA, celiac without stenosis. RETROPERITONEUM: No retroperitoneal adenopathy, hemorrhage or masses. BOWEL AND PERITONEAL CAVITY: Subtotal colectomy without evidence of anastomotic leak. No mass. No i nflammatory changes. A focus of omental necrosis demonstrated on axial images 49 through 39 is uncha nged in the study interval. APPENDIX: Surgically absent. ABDOMINAL WALL: No masses. No hernias. PELVIS: No mass or free fluid. Fatty mural stratification of the bladder is unchanged in the study i nterval. No pelvic masses or lymphadenopathy. BONES: No suspicious lytic or blastic osseous lesions. OTHER: No other significant finding. IMPRESSION: 1. Slight increase in size of a previously demonstrated lingular nodule. Stable size a nd imaging characteristics of the remaining pulmonary nodules. 2. Stable CT appearance of the abdomen and pelvis. No evidence of recurrent or metastatic disease. TECHNICAL DOCUMENTATION: JOB ID: [id number] Quality ID # 436: Final reports with documentation of one or more dose reduction techniques (e.g., Au tomated exposure control, adjustment of the mA and/or kV according to patient size, use of iterative reconstruction technique) 2010 [employer]- All Rights Reserved Reading location - IP/workstation name: [email or web address]
== END ==
LOC: RAD 14:00
PROVIDERS: ATTEND Internal Medicine
DX: C18.7 Malignant neoplasm of sigmoid colon (principal)
CPT/HCPCS: 71260; 74177; 82565

== ENCOUNTER → 2020-03-09 | Outpatient (CLI) | payer MEDICARE, BC ==
--- NOTE | 2020-03-09 13:50 | RADIOLOGY REPORT (SQ) ---
EXAM DESCRIPTION: PET CT SKULL/THIGH IMAGES COMPLETED DATE/TIME: 03/09/2020 12:23 pm REASON FOR STUDY: C18.7 MALIGNANT NEOPLASM OF SIGMOID COLON C18.7 MALIGNANT NEOPLASM OF SIGMOID COL ON COMPARISON: PET-CT dated 05/13/2019, CT chest dated 02/24/2020 RADIONUCLIDE AND DOSE: 10.19 mCi F18 FDG The route of agent administration: Intravenous FASTING BLOOD SUGAR: 95 mg/dl CONTRAST TYPE AND DOSE: No CT contrast given. TECHNIQUE: Blood glucose level was verified. Above dose of FDG was injected intravenously. 2-D seg mented attenuation correction images were obtained from the base of the skull to the midthighs. Nonc ontrast CT images were obtained for attenuation correction and fusion with emission images. CT image s were performed without oral or intravenous contrast and are not sensitive for parenchymal lesions. A series of overlapping emission PET images were obtained. Images reviewed and manipulated at [facility] work station by the radiologist. Images stored on PACS. LIMITATIONS: None. FINDINGS: HEAD AND NECK: No areas of abnormal metabolic activity in the soft tissues of the head and neck. CHEST: The lingular nodule previously described is stable in size compared to recent chest CT. SUV i s 2.0. Findings are suspicious for metastatic disease. The remainder of the pulmonary nodules are s table in size and configuration an demonstrate no abnormal metabolic activity. ABDOMEN AND PELVIS: No areas of abnormal metabolic activity in the abdomen or pelvis. Expected physi ologic activity is present in the genitourinary system and bowel. PROXIMAL LOWER EXTREMITIES: No areas of abnormal metabolic activity in the soft tissues of the lower extremities. BONES: No abnormal metabolic activity in the visualized skeleton. ADDITIONAL CT FINDINGS: No additional significant findings on the noncontrast CT images. OTHER: No other significant findings. IMPRESSION: The lingular nodule demonstrates an SUV of 2.0. This along with the increase in size is suspicious for metastatic disease. The other nodules reveal no abnormal metabolic activity. TECHNICAL DOCUMENTATION: JOB ID: [id number] 2010 [employer]- All Rights Reserved Reading location - IP/workstation name: [email or web address]
== END ==
LOC: RAD 09:46
PROVIDERS: ATTEND Internal Medicine
DX: C18.7 Malignant neoplasm of sigmoid colon (principal)
CPT/HCPCS: 78815; A9552